=== PATIENT | male | born 1965 | race Caucasian/White ===

== ENCOUNTER 2019-04-09 14:34 | Inpatient (IN) | payer MEDICARE, MEDICAID ==
[~2019-04-09] VITALS: Ht 170.2 cm; Wt 147.4 kg
[2019-04-09] MEDS ORDERED: OMEP40CA37 PO (18:53)
[2019-04-09] MEDS ORDERED: FURO40TA5 PO (18:53)
[2019-04-09] MEDS ORDERED: ACET-2154 PO (18:53)
[2019-04-09] MEDS ORDERED: MULT1TAB73 PO (18:53)
[2019-04-09] MEDS ORDERED: ZINC220C8 PO (18:53)
[2019-04-09] MEDS ORDERED: LORA1TAB PO (18:53)
[2019-04-09] MEDS ORDERED: METH5TAB2 PO (18:53)
[2019-04-09] MEDS ORDERED: SPIR100T5 PO (18:53)
[2019-04-09] MEDS ORDERED: BUPR300T54 PO (18:53)
[2019-04-09] MEDS ORDERED: FOLI0.8T2 PO (18:53)
[2019-04-09] MEDS ORDERED: CHOL20004 PO (18:53)
[2019-04-09] MEDS ORDERED: THIA100T74 PO (18:53)
[2019-04-09] MEDS ORDERED: NALO4SPR NS (18:56)
[2019-04-09] MEDS ORDERED: LORAZEPAM 1 MG TABLET PO PRN (19:30)
[2019-04-09] MEDS ORDERED: NALOXONE HCL 0.4 MG/ML AMPUL IV PRN (19:30)
[2019-04-09 20:14] VITALS: BP 120/61
[2019-04-09] MEDS: ACETAMINOPHEN 325 MG TABLET PO PRN (21:29)
[2019-04-10 06:00] VITALS: BP 113/53
[2019-04-10] MEDS: ACETAMINOPHEN 325 MG TABLET PO PRN ×3 (06:27→18:54)
[2019-04-10] MEDS: PANTOPRAZOLE SODIUM 40 MG TABLET.DR PO SCH (06:27)
[2019-04-10 08:04] VITALS: BP 106/44
[2019-04-10] MEDS: METHADONE HCL 10 MG TABLET PO SCH (08:24)
[2019-04-10] MEDS: buPROPion XL 150 MG TAB.SR.24H PO SCH (08:26)
[2019-04-10] MEDS: ZINC SULFATE 220 MG CAPSULE PO SCH (08:26)
[2019-04-10] MEDS: MULTIVITAMINS,THERAPEUTIC TABLET PO SCH (08:26)
[2019-04-10] MEDS: CHOLECALCIFEROL 1,000 UNIT TABLET PO SCH (08:26)
[2019-04-10] MEDS: SPIRONOLACTONE 100 MG TABLET PO SCH (08:27)
[2019-04-10] MEDS: THIAMINE HCL 100 MG TABLET PO SCH (08:27)
[2019-04-10] MEDS: FOLIC ACID/VITAMIN B COMP W-C TABLET PO SCH (08:27)
[2019-04-10] MEDS ORDERED: MISCELLANEOUS MED PO SCH (09:00)
[2019-04-10] MEDS ORDERED: FUROSEMIDE 40 MG TABLET PO SCH (09:00)
[2019-04-10] MEDS: ONDANSETRON HCL 4 MG TABLET PO PRN (10:23)
[2019-04-10] MEDS ORDERED: Z GUARD REMEDY PASTE 57 GM TUBE TOP PRN (14:00)
[2019-04-10 15:58] VITALS: BP 100/42
[2019-04-10 19:35] VITALS: BP 103/53
[2019-04-10] MEDS: HYDROCODONE/APAP 10-325 MG TABLET PO PRN (19:46)
[2019-04-10] MEDS: Z GUARD REMEDY PASTE 57 GM TUBE TOP SCH (20:09)
[2019-04-11] MEDS: ACETAMINOPHEN 325 MG TABLET PO PRN ×2 (00:13→14:52)
[2019-04-11 05:52] VITALS: BP 111/53
[2019-04-11 07:01] LABS: BASOPHILS % (AUTO) 0.8 % (0.0-2.0); EOSINOPHILS # (AUTO) 0.1 K/uL (0.0-0.7); EOSINOPHILS % (AUTO) 4.8 % (0.0-7.0); HEMATOCRIT 22.1 % (36.7-47.1); LYMPHOCYTES # (AUTO) 0.6 K/uL (20.0-40.0); LYMPHOCYTES % (AUTO) 22.9 % (20.5-51.5); MEAN CORPUSCULAR HEMOGLOBIN 28.7 uug (23.8-33.4); MEAN CORPUSCULAR HGB CONC 33 g/dL (32.5-36.3); MEAN CORPUSCULAR VOLUME 86.6 fL (73.0-96.2); MONOCYTES # (AUTO) 0.3 K/uL (2.0-10.0); MONOCYTES % (AUTO) 11.7 % (0.0-11.0); NEUTROPHILS # (AUTO) 1.6 K/uL (1.8-8.9); NEUTROPHILS % (AUTO) 59.8 % (38.5-71.5); PLATELET COUNT (AUTO) 58 K/uL (152-348); RED BLOOD CELL COUNT(AUTO) 2.55 MIL/uL (4.06-5.63); WHITE BLOOD COUNT (AUTO) 2.7 K/uL (3.6-10.2)
[2019-04-11] MEDS: PANTOPRAZOLE SODIUM 40 MG TABLET.DR PO SCH (07:13)
[2019-04-11 07:15] LABS: CREATININE 1.2 mg/dL (0.6-1.3); MAGNESIUM 1.5 mg/dL (1.8-2.4); PHOSPHOROUS 3.9 mg/dL (2.5-4.9); POTASSIUM 4.4 mmol/L (3.5-5.1)
[2019-04-11 07:16] LABS: HEMOGLOBIN 7.3 g/dL (12.5-16.3)
[2019-04-11 07:30] VITALS: BP 97/38
[2019-04-11 07:41] LABS: BILIRUBIN,DIRECT 0.9 mg/dL (0.0-0.2); BILIRUBIN,TOTAL 2.1 mg/dL (0.2-1.0); TOTAL PROTEIN, SERUM 6.8 g/dL (6.4-8.2)
[2019-04-11 07:52] LABS: EOSINOPHILS % (MANUAL) 3 % (0-8); LYMPHOCYTES % (MANUAL) 25 % (20-40); MONOCYTES % (MANUAL) 12 % (2-10); NEUTROPHILS % (MANUAL) 60 % (42-75)
[2019-04-11] MEDS: METHADONE HCL 10 MG TABLET PO SCH (08:30)
[2019-04-11] MEDS: MULTIVITAMINS,THERAPEUTIC TABLET PO SCH (08:31)
[2019-04-11] MEDS: CHOLECALCIFEROL 1,000 UNIT TABLET PO SCH (08:31)
[2019-04-11] MEDS: FUROSEMIDE 40 MG TABLET PO SCH (08:31)
[2019-04-11] MEDS: ONDANSETRON HCL 4 MG TABLET PO PRN (08:31)
[2019-04-11] MEDS: THIAMINE HCL 100 MG TABLET PO SCH (08:32)
[2019-04-11] MEDS: SPIRONOLACTONE 100 MG TABLET PO SCH (08:32)
[2019-04-11] MEDS: buPROPion XL 150 MG TAB.SR.24H PO SCH (08:32)
[2019-04-11] MEDS: FOLIC ACID/VITAMIN B COMP W-C TABLET PO SCH (08:32)
[2019-04-11] MEDS: ZINC SULFATE 220 MG CAPSULE PO SCH (08:33)
[2019-04-11] MEDS: Z GUARD REMEDY PASTE 57 GM TUBE TOP SCH ×2 (08:37→20:47)
[2019-04-11] MEDS: HYDROCODONE/APAP 10-325 MG TABLET PO PRN ×2 (09:43→19:26)
[2019-04-11] MEDS ORDERED: MAGNESIUM SULFATE/D5W 100 ML IV SCH (13:30)
[2019-04-11] MEDS ORDERED: MAGNESIUM OXIDE 400 MG TABLET PO ONE (13:45)
[2019-04-11 16:29] VITALS: BP 100/39
[2019-04-11 20:08] VITALS: BP 101/49
[2019-04-12 05:11] VITALS: BP 111/46
[2019-04-12] MEDS: ACETAMINOPHEN 325 MG TABLET PO PRN (05:41)
[2019-04-12] MEDS: PANTOPRAZOLE SODIUM 40 MG TABLET.DR PO SCH (06:07)
[2019-04-12 07:10] LABS: BASOPHILS % (AUTO) 0.6 % (0.0-2.0); EOSINOPHILS # (AUTO) 0.1 K/uL (0.0-0.7); EOSINOPHILS % (AUTO) 4.8 % (0.0-7.0); HEMATOCRIT 22.1 % (36.7-47.1); LYMPHOCYTES # (AUTO) 0.7 K/uL (20.0-40.0); LYMPHOCYTES % (AUTO) 22.6 % (20.5-51.5); MEAN CORPUSCULAR HEMOGLOBIN 29.1 uug (23.8-33.4); MEAN CORPUSCULAR HGB CONC 33 g/dL (32.5-36.3); MONOCYTES # (AUTO) 0.4 K/uL (2.0-10.0); MONOCYTES % (AUTO) 12.3 % (0.0-11.0); NEUTROPHILS # (AUTO) 1.8 K/uL (1.8-8.9); NEUTROPHILS % (AUTO) 59.7 % (38.5-71.5); PLATELET COUNT (AUTO) 62 K/uL (152-348); RED BLOOD CELL COUNT(AUTO) 2.54 MIL/uL (4.06-5.63)
[2019-04-12 07:19] LABS: BILIRUBIN,TOTAL 2.1 mg/dL (0.2-1.0); CREATININE 1.2 mg/dL (0.6-1.3); MAGNESIUM 1.5 mg/dL (1.8-2.4); PHOSPHOROUS 3.7 mg/dL (2.5-4.9); POTASSIUM 4.4 mmol/L (3.5-5.1); TOTAL PROTEIN, SERUM 6.7 g/dL (6.4-8.2)
[2019-04-12 07:27] LABS: HEMOGLOBIN 7.4 g/dL (12.5-16.3)
[2019-04-12 07:54] LABS: EOSINOPHILS % (MANUAL) 5 % (0-8); LYMPHOCYTES % (MANUAL) 19 % (20-40); MONOCYTES % (MANUAL) 10 % (2-10); NEUTROPHILS % (MANUAL) 66 % (42-75)
[2019-04-12] MEDS: METHADONE HCL 10 MG TABLET PO SCH (08:31)
[2019-04-12] MEDS: ONDANSETRON HCL 4 MG TABLET PO PRN (08:32)
[2019-04-12 09:38] VITALS: BP 119/50
[2019-04-12] MEDS: buPROPion XL 150 MG TAB.SR.24H PO SCH (09:42)
[2019-04-12] MEDS: Z GUARD REMEDY PASTE 57 GM TUBE TOP SCH ×2 (09:43→20:10)
[2019-04-12] MEDS: SPIRONOLACTONE 100 MG TABLET PO SCH (09:43)
[2019-04-12] MEDS: THIAMINE HCL 100 MG TABLET PO SCH (09:43)
[2019-04-12] MEDS: FOLIC ACID/VITAMIN B COMP W-C TABLET PO SCH (09:43)
[2019-04-12] MEDS: MULTIVITAMINS,THERAPEUTIC TABLET PO SCH (09:43)
[2019-04-12] MEDS: ZINC SULFATE 220 MG CAPSULE PO SCH (09:43)
[2019-04-12] MEDS: FUROSEMIDE 40 MG TABLET PO SCH (09:43)
[2019-04-12] MEDS: CHOLECALCIFEROL 1,000 UNIT TABLET PO SCH (09:43)
[2019-04-12] MEDS ORDERED: PHYTONADIONE 5 MG TABLET PO ONE (13:00)
[2019-04-12] MEDS ORDERED: PHYTONADIONE 10 MG/1 ML AMPUL SQ ONE (13:30)
[2019-04-12] MEDS: MAGNESIUM CHLORIDE 64 MG TABLET.SA PO SCH (13:55)
[2019-04-12] MEDS: METOLAZONE 5 MG TABLET PO SCH (13:56)
[2019-04-12] MEDS ORDERED: MAGNESIUM OXIDE 400 MG TABLET PO ONE (14:45)
[2019-04-12] MEDS: HYDROCODONE/APAP 10-325 MG TABLET PO PRN ×2 (16:32→23:03)
[2019-04-12 17:01] VITALS: BP 110/53
[2019-04-12 19:51] VITALS: BP 118/44
[2019-04-12 22:58] LABS: *OCCULT BLOOD STOOL NEGATIVE (NEGATIVE)
[2019-04-12] MEDS: ZOLPIDEM 5 MG TABLET PO PRN (23:06)
[2019-04-13] VITALS (11 sets, daily range): BP systolic 100–123; BP diastolic 41–63
[2019-04-13] MEDS: ACETAMINOPHEN 325 MG TABLET PO PRN (03:18)
[2019-04-13] MEDS: PANTOPRAZOLE SODIUM 40 MG TABLET.DR PO SCH (06:08)
[2019-04-13 06:40] LABS: BILIRUBIN,TOTAL 2.1 mg/dL (0.2-1.0); CREATININE 1.2 mg/dL (0.6-1.3); POTASSIUM 4.4 mmol/L (3.5-5.1); TOTAL PROTEIN, SERUM 6.7 g/dL (6.4-8.2)
[2019-04-13 07:13] LABS: EOSINOPHILS # (AUTO) 0.1 K/uL (0.0-0.7); EOSINOPHILS % (AUTO) 4.2 % (0.0-7.0); HEMATOCRIT 22.3 % (36.7-47.1); LYMPHOCYTES # (AUTO) 0.6 K/uL (20.0-40.0); LYMPHOCYTES % (AUTO) 22.1 % (20.5-51.5); MEAN CORPUSCULAR HGB CONC 33 g/dL (32.5-36.3); MEAN CORPUSCULAR VOLUME 87.3 fL (73.0-96.2); MONOCYTES # (AUTO) 0.4 K/uL (2.0-10.0); MONOCYTES % (AUTO) 13.6 % (0.0-11.0); NEUTROPHILS # (AUTO) 1.6 K/uL (1.8-8.9); NEUTROPHILS % (AUTO) 59.1 % (38.5-71.5); PLATELET COUNT (AUTO) 56 K/uL (152-348); RED BLOOD CELL COUNT(AUTO) 2.55 MIL/uL (4.06-5.63); WHITE BLOOD COUNT (AUTO) 2.7 K/uL (3.6-10.2)
[2019-04-13 07:17] LABS: HEMOGLOBIN 7.4 g/dL (12.5-16.3)
[2019-04-13 08:39] LABS: EOSINOPHILS % (MANUAL) 2 % (0-8); LYMPHOCYTES % (MANUAL) 23 % (20-40); MONOCYTES % (MANUAL) 11 % (2-10); NEUTROPHILS % (MANUAL) 64 % (42-75)
[2019-04-13] MEDS: ONDANSETRON HCL 4 MG TABLET PO PRN (08:53)
[2019-04-13] MEDS: METHADONE HCL 10 MG TABLET PO SCH (08:53)
[2019-04-13] MEDS: ZINC SULFATE 220 MG CAPSULE PO SCH (09:33)
[2019-04-13] MEDS: CHOLECALCIFEROL 1,000 UNIT TABLET PO SCH (09:33)
[2019-04-13] MEDS: MAGNESIUM CHLORIDE 64 MG TABLET.SA PO SCH (09:33)
[2019-04-13] MEDS: FUROSEMIDE 40 MG TABLET PO SCH (09:34)
[2019-04-13] MEDS: FOLIC ACID/VITAMIN B COMP W-C TABLET PO SCH (09:35)
[2019-04-13] MEDS: MULTIVITAMINS,THERAPEUTIC TABLET PO SCH (09:35)
[2019-04-13] MEDS: METOLAZONE 5 MG TABLET PO SCH (09:35)
[2019-04-13] MEDS: SPIRONOLACTONE 100 MG TABLET PO SCH (09:35)
[2019-04-13] MEDS: buPROPion XL 150 MG TAB.SR.24H PO SCH (09:35)
[2019-04-13] MEDS: THIAMINE HCL 100 MG TABLET PO SCH (09:35)
[2019-04-13] MEDS: Z GUARD REMEDY PASTE 57 GM TUBE TOP SCH ×2 (09:36→20:41)
[2019-04-13] MEDS: HYDROCODONE/APAP 10-325 MG TABLET PO PRN (15:20)
[2019-04-14] MEDS: PANTOPRAZOLE SODIUM 40 MG TABLET.DR PO SCH (06:00)
[2019-04-14 06:22] VITALS: BP 108/49
[2019-04-14 07:20] VITALS: BP 106/53
[2019-04-14] MEDS: ONDANSETRON HCL 4 MG TABLET PO PRN (08:46)
[2019-04-14] MEDS: METHADONE HCL 10 MG TABLET PO SCH (08:51)
[2019-04-14] MEDS: Z GUARD REMEDY PASTE 57 GM TUBE TOP SCH ×2 (09:00→20:20)
[2019-04-14] MEDS: FUROSEMIDE 40 MG TABLET PO SCH (09:51)
[2019-04-14] MEDS: CHOLECALCIFEROL 1,000 UNIT TABLET PO SCH (09:51)
[2019-04-14] MEDS: ZINC SULFATE 220 MG CAPSULE PO SCH (09:51)
[2019-04-14] MEDS: MULTIVITAMINS,THERAPEUTIC TABLET PO SCH (09:51)
[2019-04-14] MEDS: THIAMINE HCL 100 MG TABLET PO SCH (09:53)
[2019-04-14] MEDS: MAGNESIUM CHLORIDE 64 MG TABLET.SA PO SCH (09:53)
[2019-04-14] MEDS: FOLIC ACID/VITAMIN B COMP W-C TABLET PO SCH (09:53)
[2019-04-14] MEDS: SPIRONOLACTONE 100 MG TABLET PO SCH (09:53)
[2019-04-14] MEDS: METOLAZONE 5 MG TABLET PO SCH (09:54)
[2019-04-14] MEDS: buPROPion XL 150 MG TAB.SR.24H PO SCH (09:54)
[2019-04-14] MEDS: HYDROCODONE/APAP 10-325 MG TABLET PO PRN (14:12)
[2019-04-14 15:15] VITALS: BP 97/47
[2019-04-14 19:40] VITALS: BP 97/40
[2019-04-15] MEDS: HYDROCODONE/APAP 10-325 MG TABLET PO PRN ×2 (00:06→22:35)
[2019-04-15 04:41] VITALS: BP 120/48
[2019-04-15] MEDS: PANTOPRAZOLE SODIUM 40 MG TABLET.DR PO SCH (06:10)
[2019-04-15 06:47] LABS: EOSINOPHILS # (AUTO) 0.1 K/uL (0.0-0.7); EOSINOPHILS % (AUTO) 4.5 % (0.0-7.0); HEMATOCRIT 25.8 % (36.7-47.1); HEMOGLOBIN 8.5 g/dL (12.5-16.3); LYMPHOCYTES # (AUTO) 0.7 K/uL (20.0-40.0); LYMPHOCYTES % (AUTO) 27.9 % (20.5-51.5); MEAN CORPUSCULAR HGB CONC 33 g/dL (32.5-36.3); MEAN CORPUSCULAR VOLUME 88.3 fL (73.0-96.2); MONOCYTES # (AUTO) 0.3 K/uL (2.0-10.0); MONOCYTES % (AUTO) 11.9 % (0.0-11.0); NEUTROPHILS # (AUTO) 1.5 K/uL (1.8-8.9); NEUTROPHILS % (AUTO) 54.7 % (38.5-71.5); PLATELET COUNT (AUTO) 67 K/uL (152-348); RED BLOOD CELL COUNT(AUTO) 2.92 MIL/uL (4.06-5.63); WHITE BLOOD COUNT (AUTO) 2.7 K/uL (3.6-10.2)
[2019-04-15 06:49] LABS: CREATININE 1.2 mg/dL (0.6-1.3); MAGNESIUM 1.4 mg/dL (1.8-2.4); PHOSPHOROUS 3.7 mg/dL (2.5-4.9); POTASSIUM 4.2 mmol/L (3.5-5.1)
[2019-04-15 08:10] LABS: EOSINOPHILS % (MANUAL) 5 % (0-8); LYMPHOCYTES % (MANUAL) 34 % (20-40); MONOCYTES % (MANUAL) 6 % (2-10); NEUTROPHILS % (MANUAL) 55 % (42-75)
[2019-04-15] MEDS: ONDANSETRON HCL 4 MG TABLET PO PRN (08:17)
[2019-04-15] MEDS: buPROPion XL 150 MG TAB.SR.24H PO SCH (08:17)
[2019-04-15] MEDS: METHADONE HCL 10 MG TABLET PO SCH (08:17)
[2019-04-15] MEDS: CHOLECALCIFEROL 1,000 UNIT TABLET PO SCH (08:18)
[2019-04-15] MEDS: MULTIVITAMINS,THERAPEUTIC TABLET PO SCH (08:18)
[2019-04-15] MEDS: FUROSEMIDE 40 MG TABLET PO SCH (08:18)
[2019-04-15] MEDS: FOLIC ACID/VITAMIN B COMP W-C TABLET PO SCH (08:18)
[2019-04-15] MEDS: METOLAZONE 5 MG TABLET PO SCH (08:18)
[2019-04-15] MEDS: ZINC SULFATE 220 MG CAPSULE PO SCH (08:18)
[2019-04-15] MEDS: THIAMINE HCL 100 MG TABLET PO SCH (08:18)
[2019-04-15] MEDS: SPIRONOLACTONE 100 MG TABLET PO SCH (08:18)
[2019-04-15] MEDS: MINERAL OIL/PETROLATUM,WHITE 57 GM TUBE TOP SCH (08:26)
[2019-04-15] MEDS: MAGNESIUM CHLORIDE 64 MG TABLET.SA PO SCH (08:27)
[2019-04-15] MEDS: Z GUARD REMEDY PASTE 57 GM TUBE TOP SCH ×2 (08:27→21:10)
[2019-04-15 08:38] VITALS: BP 99/32
[2019-04-15] MEDS ORDERED: MAGNESIUM OXIDE 400 MG TABLET PO ONE (15:45)
[2019-04-15 16:34] VITALS: BP 110/52
[2019-04-15 19:49] VITALS: BP 104/32
[2019-04-16] MEDS: PANTOPRAZOLE SODIUM 40 MG TABLET.DR PO SCH (06:20)
[2019-04-16 07:00] VITALS: BP 110/59
[2019-04-16] MEDS: ONDANSETRON HCL 4 MG TABLET PO PRN (08:20)
[2019-04-16] MEDS: METHADONE HCL 10 MG TABLET PO SCH (08:22)
[2019-04-16 08:34] VITALS: BP 111/39
[2019-04-16] MEDS: buPROPion XL 150 MG TAB.SR.24H PO SCH (09:15)
[2019-04-16] MEDS: ZINC SULFATE 220 MG CAPSULE PO SCH (09:15)
[2019-04-16] MEDS: FOLIC ACID/VITAMIN B COMP W-C TABLET PO SCH (09:16)
[2019-04-16] MEDS: CHOLECALCIFEROL 1,000 UNIT TABLET PO SCH (09:16)
[2019-04-16] MEDS: METOLAZONE 5 MG TABLET PO SCH (09:16)
[2019-04-16] MEDS: FUROSEMIDE 40 MG TABLET PO SCH (09:16)
[2019-04-16] MEDS: SPIRONOLACTONE 100 MG TABLET PO SCH (09:16)
[2019-04-16] MEDS: THIAMINE HCL 100 MG TABLET PO SCH (09:16)
[2019-04-16] MEDS: MULTIVITAMINS,THERAPEUTIC TABLET PO SCH (09:16)
[2019-04-16] MEDS: MINERAL OIL/PETROLATUM,WHITE 57 GM TUBE TOP SCH (09:17)
[2019-04-16] MEDS: MAGNESIUM CHLORIDE 64 MG TABLET.SA PO SCH (09:17)
[2019-04-16] MEDS: Z GUARD REMEDY PASTE 57 GM TUBE TOP SCH ×2 (09:17→20:20)
[2019-04-16 16:36] VITALS: BP 120/45
[2019-04-16 20:48] VITALS: BP 119/46
[2019-04-17] MEDS: HYDROCODONE/APAP 10-325 MG TABLET PO PRN ×2 (00:27→21:29)
[2019-04-17 04:20] VITALS: BP 103/49
[2019-04-17] MEDS: PANTOPRAZOLE SODIUM 40 MG TABLET.DR PO SCH (06:17)
[2019-04-17] MEDS: METHADONE HCL 10 MG TABLET PO SCH (08:19)
[2019-04-17] MEDS: ONDANSETRON HCL 4 MG TABLET PO PRN (08:20)
[2019-04-17] MEDS: MINERAL OIL/PETROLATUM,WHITE 57 GM TUBE TOP SCH (09:00)
[2019-04-17 09:29] VITALS: BP 109/38
[2019-04-17] MEDS: SPIRONOLACTONE 100 MG TABLET PO SCH (10:06)
[2019-04-17] MEDS: FOLIC ACID/VITAMIN B COMP W-C TABLET PO SCH (10:06)
[2019-04-17] MEDS: buPROPion XL 150 MG TAB.SR.24H PO SCH (10:06)
[2019-04-17] MEDS: METOLAZONE 5 MG TABLET PO SCH (10:06)
[2019-04-17] MEDS: ZINC SULFATE 220 MG CAPSULE PO SCH (10:06)
[2019-04-17] MEDS: THIAMINE HCL 100 MG TABLET PO SCH (10:06)
[2019-04-17] MEDS: MAGNESIUM CHLORIDE 64 MG TABLET.SA PO SCH (10:06)
[2019-04-17] MEDS: CHOLECALCIFEROL 1,000 UNIT TABLET PO SCH (10:06)
[2019-04-17] MEDS: MULTIVITAMINS,THERAPEUTIC TABLET PO SCH (10:07)
[2019-04-17] MEDS: FUROSEMIDE 40 MG TABLET PO SCH (10:07)
[2019-04-17] MEDS: Z GUARD REMEDY PASTE 57 GM TUBE TOP SCH ×2 (10:41→20:05)
[2019-04-17 16:18] VITALS: BP 111/59
[2019-04-17 20:49] VITALS: BP 122/41
[2019-04-18 04:57] VITALS: BP 105/51
[2019-04-18] MEDS: PANTOPRAZOLE SODIUM 40 MG TABLET.DR PO SCH (06:03)
[2019-04-18 07:30] VITALS: BP 108/50
[2019-04-18] MEDS: ONDANSETRON HCL 4 MG TABLET PO PRN (08:37)
[2019-04-18] MEDS: METHADONE HCL 10 MG TABLET PO SCH (08:37)
[2019-04-18] MEDS: ZINC SULFATE 220 MG CAPSULE PO SCH (09:08)
[2019-04-18] MEDS: buPROPion XL 150 MG TAB.SR.24H PO SCH (09:08)
[2019-04-18] MEDS: METOLAZONE 5 MG TABLET PO SCH (09:08)
[2019-04-18] MEDS: SPIRONOLACTONE 50 MG TABLET PO SCH (09:08)
[2019-04-18] MEDS: FOLIC ACID/VITAMIN B COMP W-C TABLET PO SCH (09:08)
[2019-04-18] MEDS: MAGNESIUM CHLORIDE 64 MG TABLET.SA PO SCH (09:08)
[2019-04-18] MEDS: THIAMINE HCL 100 MG TABLET PO SCH (09:08)
[2019-04-18] MEDS: FUROSEMIDE 40 MG TABLET PO SCH (09:09)
[2019-04-18] MEDS: MULTIVITAMINS,THERAPEUTIC TABLET PO SCH (09:09)
[2019-04-18] MEDS: CHOLECALCIFEROL 1,000 UNIT TABLET PO SCH (09:09)
[2019-04-18] MEDS: Z GUARD REMEDY PASTE 57 GM TUBE TOP SCH ×2 (09:10→21:05)
[2019-04-18] MEDS: MINERAL OIL/PETROLATUM,WHITE 57 GM TUBE TOP SCH (09:10)
[2019-04-18 16:34] VITALS: BP 114/55
[2019-04-18 20:19] VITALS: BP 124/64
[2019-04-18] MEDS: ZOLPIDEM 5 MG TABLET PO PRN (23:19)
[2019-04-18] MEDS: HYDROCODONE/APAP 10-325 MG TABLET PO PRN (23:20)
[2019-04-19 06:10] VITALS: BP 111/63
[2019-04-19] MEDS: PANTOPRAZOLE SODIUM 40 MG TABLET.DR PO SCH (06:35)
[2019-04-19] MEDS: ONDANSETRON HCL 4 MG TABLET PO PRN ×2 (08:14→17:40)
[2019-04-19] MEDS: METHADONE HCL 10 MG TABLET PO SCH (08:14)
[2019-04-19] MEDS: THIAMINE HCL 100 MG TABLET PO SCH (08:27)
[2019-04-19] MEDS: FUROSEMIDE 40 MG TABLET PO SCH (08:27)
[2019-04-19] MEDS: CHOLECALCIFEROL 1,000 UNIT TABLET PO SCH (08:27)
[2019-04-19] MEDS: MULTIVITAMINS,THERAPEUTIC TABLET PO SCH (08:27)
[2019-04-19] MEDS: FOLIC ACID/VITAMIN B COMP W-C TABLET PO SCH (08:28)
[2019-04-19] MEDS: SPIRONOLACTONE 50 MG TABLET PO SCH (08:28)
[2019-04-19] MEDS: METOLAZONE 5 MG TABLET PO SCH (08:28)
[2019-04-19] MEDS: buPROPion XL 150 MG TAB.SR.24H PO SCH (08:28)
[2019-04-19] MEDS: MAGNESIUM CHLORIDE 64 MG TABLET.SA PO SCH (08:28)
[2019-04-19] MEDS: ZINC SULFATE 220 MG CAPSULE PO SCH (08:30)
[2019-04-19] MEDS: Z GUARD REMEDY PASTE 57 GM TUBE TOP SCH ×2 (08:31→20:38)
[2019-04-19] MEDS: MINERAL OIL/PETROLATUM,WHITE 57 GM TUBE TOP SCH (08:31)
[2019-04-19 09:01] VITALS: BP 113/51
[2019-04-19] MEDS: HYDROCODONE/APAP 10-325 MG TABLET PO PRN ×2 (11:57→21:35)
[2019-04-19 16:45] VITALS: BP 114/56
[2019-04-19] MEDS: ACETAMINOPHEN 325 MG TABLET PO PRN (17:40)
[2019-04-19 19:43] VITALS: BP 119/57
[2019-04-19] MEDS: ZOLPIDEM 5 MG TABLET PO PRN (21:35)
[2019-04-20 05:37] VITALS: BP 106/54
[2019-04-20] MEDS: PANTOPRAZOLE SODIUM 40 MG TABLET.DR PO SCH (06:12)
[2019-04-20 08:00] VITALS: BP 103/53
[2019-04-20] MEDS: METHADONE HCL 10 MG TABLET PO SCH (08:12)
[2019-04-20] MEDS: MULTIVITAMINS,THERAPEUTIC TABLET PO SCH (08:12)
[2019-04-20] MEDS: CHOLECALCIFEROL 1,000 UNIT TABLET PO SCH (08:12)
[2019-04-20] MEDS: ZINC SULFATE 220 MG CAPSULE PO SCH (08:12)
[2019-04-20] MEDS: ONDANSETRON HCL 4 MG TABLET PO PRN ×2 (08:12→18:00)
[2019-04-20] MEDS: FUROSEMIDE 40 MG TABLET PO SCH (08:12)
[2019-04-20] MEDS: FOLIC ACID/VITAMIN B COMP W-C TABLET PO SCH (08:14)
[2019-04-20] MEDS: buPROPion XL 150 MG TAB.SR.24H PO SCH (08:14)
[2019-04-20] MEDS: THIAMINE HCL 100 MG TABLET PO SCH (08:15)
[2019-04-20] MEDS: MAGNESIUM CHLORIDE 64 MG TABLET.SA PO SCH (08:15)
[2019-04-20] MEDS: SPIRONOLACTONE 50 MG TABLET PO SCH (08:15)
[2019-04-20] MEDS: METOLAZONE 5 MG TABLET PO SCH (08:15)
[2019-04-20] MEDS: MINERAL OIL/PETROLATUM,WHITE 57 GM TUBE TOP SCH (08:15)
[2019-04-20] MEDS: Z GUARD REMEDY PASTE 57 GM TUBE TOP SCH ×2 (08:17→20:17)
[2019-04-20 16:48] VITALS: BP 118/57
[2019-04-20 20:37] VITALS: BP 115/55
[2019-04-20] MEDS: HYDROCODONE/APAP 10-325 MG TABLET PO PRN (22:16)
[2019-04-20] MEDS: ZOLPIDEM 5 MG TABLET PO PRN (22:20)
[2019-04-21 04:40] VITALS: BP 108/51
[2019-04-21] MEDS: PANTOPRAZOLE SODIUM 40 MG TABLET.DR PO SCH (06:17)
[2019-04-21 08:47] VITALS: BP 109/58
[2019-04-21] MEDS: ONDANSETRON HCL 4 MG TABLET PO PRN (08:58)
[2019-04-21] MEDS: METHADONE HCL 10 MG TABLET PO SCH (08:59)
[2019-04-21] MEDS: METOLAZONE 5 MG TABLET PO SCH (09:00)
[2019-04-21] MEDS: FUROSEMIDE 40 MG TABLET PO SCH (09:00)
[2019-04-21] MEDS: buPROPion XL 150 MG TAB.SR.24H PO SCH (09:01)
[2019-04-21] MEDS: FOLIC ACID/VITAMIN B COMP W-C TABLET PO SCH (09:01)
[2019-04-21] MEDS: THIAMINE HCL 100 MG TABLET PO SCH (09:01)
[2019-04-21] MEDS: MINERAL OIL/PETROLATUM,WHITE 57 GM TUBE TOP SCH (09:02)
[2019-04-21] MEDS: MAGNESIUM CHLORIDE 64 MG TABLET.SA PO SCH (09:02)
[2019-04-21] MEDS: MULTIVITAMINS,THERAPEUTIC TABLET PO SCH (09:02)
[2019-04-21] MEDS: CHOLECALCIFEROL 1,000 UNIT TABLET PO SCH (09:02)
[2019-04-21] MEDS: ZINC SULFATE 220 MG CAPSULE PO SCH (09:02)
[2019-04-21] MEDS: SPIRONOLACTONE 50 MG TABLET PO SCH (09:02)
[2019-04-21] MEDS: Z GUARD REMEDY PASTE 57 GM TUBE TOP SCH (09:03)
== END 2019-04-21 13:00 | disposition home health service (06) | DRG 871 ==
PROVIDERS: ADMIT Physical Medicine & Rehabilitation Pain Medicine; ATTEND Physical Medicine & Rehabilitation Pain Medicine
PROC: 30233N1 Transfusion of Nonautologous Red Blood Cells into Peripheral Vein, Percutaneous Approach (ICD-10-PCS; principal; 2019-04-13)
DX: A41.9 Sepsis, unspecified organism (principal); L89.313 Pressure ulcer of right buttock, stage 3; N39.0 Urinary tract infection, site not specified; K76.6 Portal hypertension; D61.818 Other pancytopenia; R18.8 Other ascites; Z68.43 Body mass index [BMI] 50.0-59.9, adult; R65.20 Severe sepsis without septic shock; D69.6 Thrombocytopenia, unspecified; R11.0 Nausea; E11.9 Type 2 diabetes mellitus without complications; E87.70 Fluid overload, unspecified; E55.9 Vitamin D deficiency, unspecified; K74.60 Unspecified cirrhosis of liver; B19.20 Unspecified viral hepatitis C without hepatic coma; R53.81 Other malaise; E66.01 Morbid (severe) obesity due to excess calories; I10 Essential (primary) hypertension; I89.0 Lymphedema, not elsewhere classified; G72.9 Myopathy, unspecified; D64.9 Anemia, unspecified; F11.11 Opioid abuse, in remission
CPT/HCPCS: 36415; 76700; 83550; 83735; 84100; 85025; 85730; 86850; 86900; 86901; 86920; 92526; 92610; 93005; 97110; 97112; 97116; 97165; 97530; 97535; A4217; A4663; J3430; J7040; P9016-BL; P9021; Q0162